=== PATIENT | female | born 2000 | race Caucasian/White ===

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

== ENCOUNTER 2019-02-23 13:15 | Emergency (ER) | payer BC ==
[2019-02-23 14:11] LABS: Absolute Lymphocytes (CBC) 1.9 K/uL (0.7-4.9); Basophils % 0.6 % (0-1.3); Hematocrit 34.4 % (36.0-45.0); MPV 9.9 fL (7.6-11.3)
[2019-02-23 14:13] LABS: Protime INR 1.12
--- NOTE | 2019-02-23 14:27 | RAD REPORT ---
EXAM DESCRIPTION: RAD - Chest Single View - 02/23/2019 2:17 pm CLINICAL HISTORY: CHEST PAIN Chest pain. COMPARISON: No comparisons FINDINGS: Portable technique limits examination quality. The lungs are grossly clear. The heart is normal in size. No displaced fractures. IMPRESSION: No acute intrathoracic process suspected.
[2019-02-23] MEDS ORDERED: ASPIRIN 81 MG CHEWABLE TABLET ONE (14:45)
[2019-02-23 15:10] LABS: Barbiturates NEGATIVE (NEGATIVE); Benzodiazepines NEGATIVE (NEGATIVE); Cocaine NEGATIVE (NEGATIVE); METHAMPHETAM NEGATIVE (NEGATIVE); Methadone NEGATIVE (NEGATIVE); Opiates NEGATIVE (NEGATIVE); Phencyclidine NEGATIVE (NEGATIVE); THC Cannibis POSITIVE (NEGATIVE)
--- NOTE | 2019-02-23 15:42 | EKG ---
Test Date: 2019-02-23 Test Time: 13:35:56 Extermination Inspector: ROBERT MEASUREMENT RESULTS: Intervals: Rate: 78 NC: 118 QRSD: 84 QT: 374 QTc: 426 [place]: P: 45 NC: 118 QRS: 83 T: 46 INTERPRETIVE STATEMENTS: Normal sinus rhythm Normal ECG No previous ECG available for comparison Electronically Signed On 02-23-19 15:42:24 CDT by Kevon Argueta
--- NOTE | 2019-02-23 15:45 | RAD REPORT ---
EXAM DESCRIPTION: CT - Chest For Pe Angio - 02/23/2019 3:29 pm CLINICAL HISTORY: Chest pain COMPARISON: None. TECHNIQUE: Dynamically enhanced axial 3 mm thick images of the chest were obtained during administra tion of <100> mL Isovue 370 IV contrast. Coronal and oblique reconstruction images were generated and reviewed. Exam utilizes a protocol for optimal evaluation of pulmonary arterial tree. Maximum intensity projections 3D imaging was utilized All CT scans are performed using dose optimization technique as appropriate and may include automated exposure control or mA/KV adjustment according to patient size. FINDINGS: A pulmonary embolus is not seen. A thoracic aortic aneurysm is not noted. A pleural effusion is not seen. A pericardial effusion is not seen. A lung consolidation is not present. 4 x 2 cm anterior mediastinal soft tissue structure IMPRESSION: Negative for a pulmonary embolism. 4 x 2 centimeter anterior mediastinal soft tissue structure may represent thymic hyperplasia, lymphad enopathy or normal thymus. Followup CT in 3 months recommended for re-evaluation
--- NOTE | 2019-02-23 15:51 | ER ---
Nurse's Notes [facility] Name: Karely Pennington Age: 18 yrs Sex: Female : 2000 Arrival Date: 02/23/2019 Time: 13:18 Bed 26 Private MD: Diagnosis: Other chest pain;Other diseases of thymus-4x2 cm thymic hyperplasia Presentation: 02/23 13:23 Presenting complaint: Intermittent left sided chest pain that radiates to right chest hb and palpitations x 1 week. Transition of care: patient was not received from another setting of care. Onset of symptoms was February 16, 2019. Risk Assessment: Do you want to hurt yourself or someone else? Patient reports no desire to harm self or others. Initial Sepsis Screen: Does the patient meet any 2 criteria? No. Patient's initial sepsis screen is negative. Does the patient have a suspected source of infection? No. Patient's initial sepsis screen is negative. Care prior to arrival: None. 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 - Social history:: Smoking status: Patient uses tobacco products, 1PPD, quit one week ago. - Ebola Screening: : No symptoms or risks identified at this time. - Family history:: not pertinent. Screenin:45 Abuse screen: Denies threats or abuse. Denies injuries from another. Nutritional aj1 screening: No deficits noted. Tuberculosis screening: No symptoms or risk factors identified. 14:45 Fall Risk None identified. rv Assessment: 13:45 General: Appears in no apparent distress. comfortable, Behavior is calm, cooperative, aj1 appropriate for age. Pain: Denies pain. Pain: Patient has no pain at time of assessment Pain began one week ago. Neuro: Level of Consciousness is awake, alert, obeys commands, Oriented to person, place, time, situation, Speech is normal, Facial symmetry appears normal. Cardiovascular: Reports chest pain, that is intermittent for the past week. Patient states that she has no pain at this time Heart tones S1 S2 present Patient's skin is warm and dry. Rhythm is sinus rhythm. Respiratory: Airway is patent Respiratory effort is even, unlabored, Respiratory pattern is regular, symmetrical. GI: No signs and/or symptoms were reported involving the gastrointestinal system. : No signs and/or symptoms were reported regarding the genitourinary system. EENT: No signs and/or symptoms were reported regarding the EENT system. Derm: No signs and/or symptoms reported regarding the dermatologic system. Skin is pink, warm \T\ dry. normal. Musculoskeletal: No signs and/or symptoms reported regarding the musculoskeletal system. Circulation, motion, and sensation intact. 14:30 Reassessment: Patient appears in no apparent distress at this time. No changes from aj1 previously documented assessment. Patient and/or family updated on plan of care and expected duration. Pain level reassessed. Patient is alert, oriented x 3, equal unlabored respirations, skin warm/dry/pink. 15:38 Reassessment: Patient denies pain at this time. rv 16:28 Reassessment: Patient appears in no apparent distress at this time. No changes from aj1 previously documented assessment. Patient and/or family updated on plan of care and expected duration. Pain level reassessed. Patient is alert, oriented x 3, equal unlabored respirations, skin warm/dry/pink. Vital Signs: 13:24 BP 136 / 95; Pulse 106; Resp 16; Temp 97.8; Pulse Ox 100% on R/A; Weight 58.97 kg; hb Height 4 ft. 9 in. (144.78 cm); Pain 5/10; 14:30 BP 122 / 85; Pulse 72; Resp 16; Pulse Ox 100% on R/A; aj1 15:37 BP 109 / 79; Pulse 66; Resp 14; Pulse Ox 100% on R/A; rv 16:28 BP 105 / 69; Pulse 71; Resp 16; Pulse Ox 100% on R/A; aj1 13:24 Body Mass Index 28.13 (58.97 kg, 144.78 cm) hb ED Course: 13:18 Patient arrived in ED. mr 13:24 Triage completed. hb 13:24 Arm band placed on. hb 13:33 Anjel Castro MD is Attending Physician. [facility] 13:36 Bret, Sierra, RN is Primary Nurse. aj1 13:37 EKG done, by technical laboratory asst. reviewed by Anjel Castro MD. at1 13:45 Patient has correct armband on for positive identification. monitor and storage bin tender on. Pulse aj1 ox on. NIBP on. 13:45 No provider procedures requiring assistance completed. Patient maintains SpO2 aj1 saturation greater than 95% on room air. 13:57 Inserted saline lock: 20 gauge in right antecubital area, using aseptic technique. rv Blood collected. 14:19 XRAY Chest (1 view) In Process Unspecified. EDMS 14:41 Radiology exam delayed due to lab results not completed at this time. (BUN/Creatinine) mw3 test not completed at this time. 15:03 Radiology exam delayed due to lab results not completed at this time. (BUN/Creatinine). mw3 15:32 CT Chest For PE Angio In Process Unspecified. EDMS 15:51 Husam Cardenas MD is Referral Physician. julia 16:29 IV discontinued, intact, bleeding controlled, No redness/swelling at site. Pressure aj1 dressing applied. Administered Medications: 14:45 Drug: Aspirin 81 mg Route: PO; rv 15:39 Follow up: Response: No adverse reaction rv Outcome: 15:50 Discharge ordered by . julia 16:29 Discharged to home ambulatory. aj1 16:29 Condition: good 16:29 Discharge instructions given to patient, Instructed on discharge instructions, follow up and referral plans. medication usage, Demonstrated understanding of instructions, follow-up care, medications, Prescriptions given X 1. 16:31 Patient left the ED. aj1 Signatures: Dispatcher [employer] EDSierra Neff RN RN aj1 Anjel Castro MD MD cha Rivera, Mary ReddyShahrzad, religious leader EKG Tat1 Nicole Layton RN RN hb Willis, Michelle mw3 Vincent Paris RN RN rv Corrections: (The following items were deleted from the chart) 13:26 13:25 Social history: Smoking status: Patient/guardian denies using tobacco, hb hb
--- NOTE | 2019-02-23 15:51 | EDPHYS ---
Physician Documentation [facility] Name: Karely Pennington Age: 18 yrs Sex: Female : 2000 Arrival Date: 02/23/2019 Time: 13:18 Bed 26 Private MD: ED Physician Anjel Castro HPI: 02/23 14:32 This 18 yrs old Female presents to ER via Ambulatory with complaints of High julia Blood Pressure, Chest Pain. 14:32 The patient has elevated blood pressure and discovered this at home, with a home julia device. Onset: The symptoms/episode began/occurred 1 day(s) ago. Modifying factors: The symptoms are aggravated by movement, The symptoms are alleviated by remaining still. Associated signs and symptoms: The patient has no apparent associated signs or symptoms. Severity of symptoms: At its worst the blood pressure was mild, in the emergency department the blood pressure is unchanged. The patient has not experienced similar symptoms in the past. 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 - Social history:: Smoking status: Patient uses tobacco products, 1PPD, quit one week ago. - Ebola Screening: : No symptoms or risks identified at this time. - Family history:: not pertinent. ROS: 14:32 Constitutional: Negative for fever, chills, and weight loss, Eyes: Negative for injury, julia pain, redness, and discharge, ENT: Negative for injury, pain, and discharge, Neck: Negative for injury, pain, and swelling, Respiratory: Negative for shortness of breath, cough, wheezing, and pleuritic chest pain, Abdomen/GI: Negative for abdominal pain, nausea, vomiting, diarrhea, and constipation, Back: Negative for injury and pain, : Negative for injury, bleeding, discharge, and swelling, MS/Extremity: Negative for injury and deformity, Skin: Negative for injury, rash, and discoloration, Neuro: Negative for headache, weakness, numbness, tingling, and seizure, Psych: Negative for depression, anxiety, suicide ideation, homicidal ideation, and hallucinations, Allergy/Immunology: Negative for hives, rash, and allergies, Endocrine: Negative for neck swelling, polydipsia, polyuria, polyphagia, and marked weight changes, Hematologic/Lymphatic: Negative for swollen nodes, abnormal bleeding, and unusual bruising. 14:32 Cardiovascular: Positive for chest pain, with movement, of the chest. Exam: 14:32 Constitutional: This is a well developed, well nourished patient who is awake, alert, julia and in no acute distress. Head/Face: Normocephalic, atraumatic. Eyes: Pupils equal round and reactive to light, extra-ocular motions intact. Lids and lashes normal. Conjunctiva and sclera are non-icteric and not injected. Cornea within normal limits. Periorbital areas with no swelling, redness, or edema. ENT: Nares patent. No nasal discharge, no septal abnormalities noted. Tympanic membranes are normal and external auditory canals are clear. Oropharynx with no redness, swelling, or masses, exudates, or evidence of obstruction, uvula midline. Mucous membranes moist. Neck: Trachea midline, no thyromegaly or masses palpated, and no cervical lymphadenopathy. Supple, full range of motion without nuchal rigidity, or vertebral point tenderness. No Meningismus. Cardiovascular: Regular rate and rhythm with a normal S1 and S2. No gallops, murmurs, or rubs. Normal PMI, no JVD. No pulse deficits. Respiratory: Lungs have equal breath sounds bilaterally, clear to auscultation and percussion. No rales, rhonchi or wheezes noted. No increased work of breathing, no retractions or nasal flaring. Abdomen/GI: Soft, non-tender, with normal bowel sounds. No distension or tympany. No guarding or rebound. No evidence of tenderness throughout. Back: No spinal tenderness. No costovertebral tenderness. Full range of motion. Skin: Warm, dry with normal turgor. Normal color with no rashes, no lesions, and no evidence of cellulitis. MS/ Extremity: Pulses equal, no cyanosis. Neurovascular intact. Full, normal range of motion. Neuro: Awake and alert, GCS 15, oriented to person, place, time, and situation. Cranial nerves II-XII grossly intact. Motor strength 5/5 in all extremities. Sensory grossly intact. Cerebellar exam normal. Normal gait. Psych: Awake, alert, with orientation to person, place and time. Behavior, mood, and affect are within normal limits. 14:32 Chest/axilla: Inspection: Palpation: no acute changes. 14:42 Musculoskeletal/extremity: DVT Exam: No signs of deep vein thrombosis. no swelling, julia negative Homans' sign noted on exam, no appreciated bluish discoloration, no erythema, no increased warmth, pain, tenderness. Vital Signs: 13:24 BP 136 / 95; Pulse 106; Resp 16; Temp 97.8; Pulse Ox 100% on R/A; Weight 58.97 kg; hb Height 4 ft. 9 in. (144.78 cm); Pain 5/10; 14:30 BP 122 / 85; Pulse 72; Resp 16; Pulse Ox 100% on R/A; aj1 15:37 BP 109 / 79; Pulse 66; Resp 14; Pulse Ox 100% on R/A; rv 16:28 BP 105 / 69; Pulse 71; Resp 16; Pulse Ox 100% on R/A; aj1 13:24 Body Mass Index 28.13 (58.97 kg, 144.78 cm) hb MDM: 13:33 Patient medically screened. [facility] 14:34 Data reviewed: vital signs, nurses notes, lab test result(s), EKG, radiologic studies, [facility] CT scan, plain films. 02/23 14:03 Order name: Urine Dipstick--Ancillary (enter results) 02/23 14:03 Order name: Urine --Ancillary (enter results) 02/23 14:06 Order name: Basic Metabolic Panel [facility] 02/23 13:34 Order name: XRAY Chest (1 view); Complete Time: 15:14 [facility] 02/23 13:34 Order name: EKG; Complete Time: 13:59 [facility] 02/23 13:34 Order name: Cardiac monitoring; Complete Time: 13:57 [facility] 02/23 13:34 Order name: EKG - Nurse/Tech; Complete Time: 13:57 [facility] 02/23 14:06 Order name: Liver (Hepatic) Function [facility] 02/23 14:06 Order name: Troponin (Emerg Dept Use Only) [facility] 02/23 14:06 Order name: NT PRO-BNP [facility] 02/23 14:06 Order name: Magnesium [facility] 02/23 14:12 Order name: Lipase [facility] 02/23 14:12 Order name: Thyroid Stimulating Hormone [facility] 02/23 14:12 Order name: CBC with Automated Diff; Complete Time: 14:31 [facility] 02/23 14:12 Order name: Protime (+INR); Complete Time: 14:31 [facility] 02/23 14:12 Order name: D-Dimer; Complete Time: 14:31 [facility] 02/23 14:12 Order name: Urine Drug Screen; Complete Time: 15:32 [facility] 02/23 14:37 Order name: CT Chest For PE Angio [facility] 02/23 13:34 Order name: IV Saline Lock; Complete Time: 13:56 [facility] 02/23 13:34 Order name: Labs collected and sent; Complete Time: 13:57 [facility] 02/23 13:34 Order name: O2 Per Protocol; Complete Time: 13:57 [facility] 02/23 13:34 Order name: O2 Sat Monitoring; Complete Time: 13:57 [facility] 02/23 13:34 Order name: Urine Dipstick-Ancillary (obtain specimen); Complete Time: 13:56 [facility] 02/23 13:34 Order name: Urine Test (obtain specimen); Complete Time: 13:56 [facility] Administered Medications: 14:45 Drug: Aspirin 81 mg Route: PO; rv 15:39 Follow up: Response: No adverse reaction rv Disposition: 02/23/19 15:50 Discharged to Home. Impression: Other chest pain, Other diseases of thymus - 4x2 cm thymic hyperplasia. - Condition is Stable. - Discharge Instructions: Nonspecific Chest Pain, Chest Wall Pain, Nonspecific Chest Pain, [id number], Aspirin and Your Heart. - Prescriptions for Motrin IB 200 mg Oral Tablet - take 2 tablet by ORAL route every 6 hours As needed as needed with food; 30 tablet. - Medication Reconciliation Form, Thank You Letter, Antibiotic Education, Prescription Opioid Use form. - Follow up: Private Physician; When: 2 - 3 days; Reason: Recheck today's complaints, Continuance of care, Re-evaluation by your physician. Follow up: Husam Cardenas MD; When: 2 - 3 days; Reason: Recheck today's complaints, Re-evaluation by your physician. - Problem is new. - Symptoms have improved. Signatures: Dispatcher [employer] [facility] Sierra Queen RN RN aj1 Anjel Castro MD MD cha Baxter, Heather, RN RN hb Vincent Paris RN RN rv Corrections: (The following items were deleted from the chart) 13:26 13:25 Social history: Smoking status: Patient/guardian denies using tobacco, hb hb 14:16 13:59 BASIC METABOLIC PANEL+C.LAB.BRZ ordered. EDMS EDMS 14:16 13:59 CBC+H.LAB.BRZ ordered. EDMS EDMS 14:16 13:59 HEPATIC FUNCTION+C.LAB.BRZ ordered. EDMS EDMS 14:16 13:59 MAGNESIUM+C.LAB.BRZ ordered. EDMS EDMS 14:16 13:59 PROBNP+C.LAB.BRZ ordered. EDMS EDMS 14:16 13:59 PROTIME (+INR)+COAG.LAB.BRZ ordered. EDMS EDMS 14:16 13:59 TROPONIN (EMERG DEPT USE ONLY)+C.LAB.BRZ ordered. EDMS EDMS 14:16 13:59 THYROID STIMULAT HORMONE+C.LAB.BRZ ordered. EDMS EDMS 14:16 13:59 LIPASE+C.LAB.BRZ ordered. EDMS EDMS 14:16 13:59 URINE DRUG SCREEN+CHEM UR.LAB.BRZ ordered. EDMS EDMS 14:16 13:59 D-DIMER+COAG.LAB.BRZ ordered. EDMS EDMS 15:51 15:50 02/23/2019 15:50 Discharged to Home. Impression: Other chest pain; Other diseases julia of thymus - 4x2 cm thymic hyperplasia. Condition is Stable. Discharge Instructions: Nonspecific Chest Pain, Chest Wall Pain, Nonspecific Chest Pain, [id number], Aspirin and Your Heart. Prescriptions for Motrin IB 200 mg Oral Tablet - take 2 tablet by ORAL route every 6 hours As needed as needed with food; 30 tablet. and Forms are Medication Reconciliation Form, Thank You Letter, Antibiotic Education, Prescription Opioid Use. Follow up: Private Physician; When: 2 - 3 days; Reason: Recheck today's complaints, Continuance of care, Re-evaluation by your physician. Problem is new. Symptoms have improved. [facility] 16:31 15:51 02/23/2019 15:50 Discharged to Home. Impression: Other chest pain; Other diseases aj1 of thymus - 4x2 cm thymic hyperplasia. Condition is Stable. Discharge Instructions: Nonspecific Chest Pain, Chest Wall Pain, Nonspecific Chest Pain, [id number], Aspirin and Your Heart. Prescriptions for Motrin IB 200 mg Oral Tablet - take 2 tablet by ORAL route every 6 hours As needed as needed with food; 30 tablet. and Forms are Medication Reconciliation Form, Thank You Letter, Antibiotic Education, Prescription Opioid Use. Follow up: Private Physician; When: 2 - 3 days; Reason: Recheck today's complaints, Continuance of care, Re-evaluation by your physician. Follow up: Husam Cardenas; When: 2 - 3 days; Reason: Recheck today's complaints, Re-evaluation by your physician. Problem is new. Symptoms have improved. julia
[2019-02-23 16:32] LABS: Urine Blood NEGATIVE (NEG); Urine Glucose NEGATIVE (NEG); Urine Protein NEGATIVE (NEG)
[2019-02-23 17:00] LABS: ALT/SGPT 14 U/L (12-78); AST/SGOT 8 U/L (15-37); Albumin 3.8 g/dL (3.4-5.0); Alkaline Phosphatase 24 U/L (45-117); BUN Blood Urea Nitrogen 12 mg/dL (7-18); Bicarbonate 26 mmol/L (21-32); Bilirubin Direct 0.1 mg/dL (0-0.2); Bilirubin Total 0.4 mg/dL (0.2-1.0); Glucose Level 92 mg/dL (74-106); Lipase 158 U/L (73-393); Magnesium 1.9 mg/dL (1.8-2.4); NT PRO-BNP 37 pg/mL (<125); Potassium 3.9 mmol/L (3.5-5.1); Protein, Total 7.2 g/dL (6.4-8.2); Sodium Level 142 mmol/L (136-145); Troponin (Emerg Dept Use Only) < 0.02 ng/mL (0.0-0.045)
[2019-02-23 18:32] VITALS: TEMP 97.8; O2SAT 100
[2019-02-23 18:35] VITALS: BP 105/69
== END 2019-02-23 16:31 | disposition home or self-care (01) ==
LOC: ER 13:15
DX: E32.0 Persistent hyperplasia of thymus (principal); Z72.0 Tobacco use
CPT/HCPCS: 93005; 85025; 80048; 36415; 83735; 81025; 85610; 85379; 80076; 80307 ×8; 84443; 81003; 84484; 83690; 83880; 71275; 71045; 99285; Q9967